=== PATIENT | female | born 1985 | race Caucasian/White ===

== ENCOUNTER 2016-11-18 07:11 | Inpatient (IN) | payer OTHER ==
[~2016-11-18] VITALS: Ht 162.6 cm; Wt 77.0 kg
[2016-11-18] VITALS (45 sets, daily range): BP systolic 105–140; BP diastolic 53–105; PULSE 74–117; RESP 17–30; TEMP 97.6–98.7; O2SAT 98–100
--- NOTE | 2016-11-18 07:55 | PD ---
HPI Chief Complaint Vaginal discharge , Uterine contractions, Date Seen: Nov 18, 2016 Time Seen: 07:40 Travel History International Travel<30 Days: No Contact w/Intl Traveler<30Days: No Known Affected Area: No History of Present Illness HPI Pt is a 31 yo at 40 weeks and 4 days EDC 11-08-[address] Foy, previously uncomplicated. Pt reports 'loss of mucoid plug' at 9pm last night. Discharge appeared greenish this morning. Patient reports contractions during the night No vaginal bleeding. Weeks Gestation: 40 Para: 0 : 1 History Past Medical History Medical History: Denies Significant Hx Past Surgical History Narrative Surgical Laparoscopic cholecystectomy Family History Family History: Negative Social History Alcohol Use: No Tobacco Use: No Substance Abuse: No Allergies-Medications (Allergen,Severity, Reaction): Coded Allergies: No Known Allergies (Unverified , 11/18/16) Review of Systems Except as stated in HPI: all other systems reviewed are Neg Physical Exam Narrative GENERAL: Well-nourished, well-developed patient. SKIN: Warm and dry. HEAD: Normocephalic and atraumatic. EYES: No scleral icterus. No injection or drainage. ENT: No nasal drainage noted. Mucous membranes pink. Airway patent. NECK: Supple, trachea midline. No JVD. CARDIOVASCULAR: Regular rate and rhythm without murmurs, gallops, or rubs. RESPIRATORY: Breath sounds equal bilaterally. No accessory muscle use. BREASTS: Bilateral exam showed no masses , no retractions, no nipple discharge. ABDOMEN/GI: Abdomen soft, non-tender, bowel sounds present, no rebound, no guarding Gravid to [40] weeks size Fundal Height: [-] GENITOURINARY: External Genitalia: intact and normal in appearance BUS glands: [wnl] Cervix: [closed] Dilatation: [closed] Effacement: [50%] Station: [-3] Presentation: [vertex] Membranes: [intact ]Amniosure negative Uterine Contractions: [-] FHT's: Category: [1] Baseline: [-] Reactive: [-] Variability: [-] Decels: [-] EXTREMITIES: No cyanosis or edema. BACK: Nontender without obvious deformity. No CVA tenderness. NEUROLOGICAL: Awake and alert. Motor and sensory grossly within normal limits. Five out of 5 muscle strength in all muscle groups. Normal speech. Data Data Vital Signs Reviewed: Yes Group B Strep: Negative MDM Medical Record Reviewed: Yes Interpretation(s) Uterine contractions, cervix closed. Pt subsequently had decell to 90s that lasted 3 minutes with spontaneous recovery. Plan to admit. D/w Dr Foy Plan Admit for labor and delivery GBS negative Diagnosis Diagnosis: Primary Impression: Indication for care in labor and delivery, antepartum Additional Impression: 40 weeks gestation of Papi Bush MD Nov 18, 2016 07:55
[2016-11-18] MEDS ORDERED: LIDOCAINE HCL 1% 50 ML VIAL INFIL PRN (08:15)
[2016-11-18] MEDS ORDERED: SODIUM CHLOR 0.9% 1000 ML INJ 1,000 ML IV PRN (08:23)
[2016-11-18 08:40] LABS: AUTOMATED NEUTROPHIL # 11.7 TH/MM3 (1.8-7.7); BASOPHIL % 0.1 % (0.0-2.0); EOSINOPHIL # 0.1 TH/MM3 (0-0.4); EOSINOPHIL % 0.5 % (0.0-4.0); HEMATOCRIT 33.1 % (35.0-46.0); HEMO FLAGS DIFF FINAL; LYMPH % 12.8 % (9.0-44.0); LYMPHOCYTE # 1.9 TH/MM3 (1.0-4.8); MEAN CELL VOLUME 88.2 FL (80.0-100.0); MEAN CORPUSCULAR HGB CONC 34.1 % (32.0-36.0); MONO % 8.6 % (0.0-8.0); PLATELET COUNT 233 TH/MM3 (150-450); RED BLOOD COUNT 3.75 MIL/MM3 (4.00-5.30); RED CELL DISTRIBUTION WIDTH 13.7 % (11.6-17.2); WHITE BLOOD COUNT 15.1 TH/MM3 (4.0-11.0)
[2016-11-18] MEDS ORDERED: LIDOCAINE HCL 1% 50 ML VIAL I-DERMAL PRN (09:00)
[2016-11-18] MEDS ORDERED: CITRIC ACID-SODIUM CITRATE LIQ 30 ML UDC PO SCH ×2 (09:00→19:00)
[2016-11-18] MEDS ORDERED: MINERAL OIL 10 ML VIAL TOPICAL PRN (09:00)
[2016-11-18] MEDS ORDERED: SODIUM CHLORID 0.9% 500 ML INJ 500 ML IV PRN (09:00)
[2016-11-18] MEDS ORDERED: LACTATED RINGER'S 1000 ML INJ 1,000 ML IV PRN (09:00)
[2016-11-18] MEDS: LACTATED RINGER'S 1000 ML INJ 1,000 ML IV SCH ×2 (09:00→11:47)
[2016-11-18] MEDS ORDERED: OXYTOCIN 30 UNITS-500ML PREMIX 500 ML IV ONE ×2 (09:00→18:45)
[2016-11-18 09:03] LABS: BACTERIA, URINE MANY /hpf; BLOOD, URINE SMALL (NEG); COMMENT (UR) CULTURE INDICATED; CULTURE IF INDICATED CULTURE INDICATED; GLUCOSE,URINE NEG (NEG); KETONE, URINE NEG (NEG); MUCUS URINE FEW /lpf (OCC); NITRITE,URINE NEG (NEG); SQUAMOUS EPITHELIAL CELL URINE 20 /hpf (0-5); URINE COLOR YELLOW (YELLW/STRAW)
[2016-11-18] MEDS ORDERED: CLINDAMYCIN PHOS 600 MG/4 ML VIAL IM ONE (09:30)
[2016-11-18] MEDS ORDERED: OXYTOCIN 30 UNITS-500ML PREMIX 500 ML IV SCH (09:30)
--- NOTE | 2016-11-18 09:46 | PD.LABORPN ---
Subjective Subjective Notes copious green discharge which she thought was her plug. Having irregular UCs. Did have a prolonged contraction with some affect on strip and since post term, admitted by Dr. Bush. GFM no clear fluid leaking. no bleeding. no nausea, vomiting, blurred vision, RUQT DESAI PNC with HOGA GBS negative hep C + History of substance use disorder but has been in successful recovery with negative UDS during gestation. Does have significant anxiety disorder and does use intermittent xanax. today's urine does show trich Objective Objective strip category one 1 cm, firm, posterior 80% engaged EFW 7 1/2 pounds pelvis in questionable but baby low. Weeks Gestation: 40 Gest Age Assessed Date: Nov 18, 2016 Gest Age Assessed Time: 09:44 Pt started active labor?: No Medical induction of labor?: Yes Medical induction start date: Nov 18, 2016 Medical induction start time: 09:44 Artificial rupture of membrane: No Assessment/Plan Assessment and Plan will treat trich with clindomycin IV will keep intact low dose pit manage with anticipate of have discussed that antibiotic needed (tho not that trich is an STD, since family in room) have discussed labor starting with unfavorable cervix and this will need patience. reviewed epidural, section, etc. Alanna Mittal MD Nov 18, 2016 09:46
[2016-11-18] MEDS ORDERED: CLINDAMYCIN INJ 600 MG in SODIUM CHLORIDE 0.9% INJ 100 ML IV ONE ×2 (10:30→12:15)
[2016-11-18] MEDS ORDERED: TERBUTALINE INJ 1 MG/ML AMP ONE (12:32)
[2016-11-18] MEDS ORDERED: LACTATED RINGER'S 1000 ML INJ 1,000 ML IV SCH ×2 (17:00→23:33)
[2016-11-18] MEDS ORDERED: LACTATED RINGER'S 1000 ML INJ 1,000 ML IV ONE (17:16)
--- NOTE | 2016-11-18 17:16 | PD.LABORPN ---
Subjective Subjective Standing in room and trying to bring baby down. only mild irregular contractions. with minimal pitocin had 9 minute decel that required arom and FSE at 1 cm/90/ posterior Objective Vital Signs Vital Signs Date Time Temp Pulse Resp B/P (MAP) Pulse Ox O2 Delivery O2 Flow Rate FiO2 11/18/16 16:55 18 11/18/16 16:54 98.4 11/18/16 16:53 92 135/85 (102) 11/18/16 16:00 18 11/18/16 15:00 18 11/18/16 14:00 18 11/18/16 13:00 91 11/18/16 13:00 20 11/18/16 12:55 100 11/18/16 12:50 107 11/18/16 12:45 104 11/18/16 12:40 106 11/18/16 12:30 20 11/18/16 12:30 117 140/105 (117) 11/18/16 12:30 104 11/18/16 12:25 78 11/18/16 12:20 76 11/18/16 12:15 86 11/18/16 12:10 84 11/18/16 12:05 77 11/18/16 12:01 84 117/73 (88) 11/18/16 12:00 18 11/18/16 12:00 78 11/18/16 11:55 76 11/18/16 11:50 84 11/18/16 11:46 76 122/69 (86) 11/18/16 11:45 77 11/18/16 11:40 96 11/18/16 11:35 93 11/18/16 11:30 91 11/18/16 11:25 76 11/18/16 11:20 78 11/18/16 11:15 86 11/18/16 11:10 78 11/18/16 11:05 80 11/18/16 11:00 81 11/18/16 10:56 17 11/18/16 10:55 86 11/18/16 10:50 83 11/18/16 10:46 86 137/75 (95) 11/18/16 10:45 82 11/18/16 10:45 98.2 11/18/16 09:45 18 Objective 1cm/80-90% very posterior FSE way up and cannot feel its attachment no more descent. strip is OK at this point Weeks Gestation: 40 Gest Age Assessed Date: Nov 18, 2016 Gest Age Assessed Time: 09:44 Pt started active labor?: No Medical induction of labor?: Yes Medical induction start date: Nov 18, 2016 Medical induction start time: 09:44 Artificial rupture of membrane: Yes Artificial ROM date: Nov 18, 2016 Artifical ROM time: 12:30 Assessment/Plan Assessment and Plan unable to obtain adequate UCs several tetanic UCs with 9 min decel requiring terb last UC no change since exam this am Failure of descent inadequate labor but cannot augment will proceed with section risks, benefits and expectations reviewed with family. Alanna Mittal MD Nov 18, 2016 17:16
[2016-11-18] MEDS ORDERED: OXYTOCIN 10 UNIT/ML AMP ONE (17:20)
[2016-11-18] MEDS ORDERED: ceFAZolin INJ 1,000 MG VIAL ONE (17:20)
[2016-11-18] MEDS ORDERED: MORPHINE SULFATE PF 5 MG/10 ML VIAL ONE (18:33)
--- NOTE | 2016-11-18 18:33 | PD.OB.DELI ---
Procedure Note Section Procedure Pre Op Diagnosis: (1) Failure of descent in labor, delivered, current hospitalization (2) 40 weeks gestation of Post Op Diagnosis: (1) Rudimentary uterine horn Performed by Alanna Mittal Procedure: Primary Low Transverse Sec Indication for delivery: Nonreassuring heart tracing, Other (failure of descent due to right rudimentary horn) Previous condition: None Informed consent obtained: For anesthesia, For procedure Confirmed correct: Patient, Procedure, Site, Time-out taken Anesthesia: Spinal Medication prior to procedure: As documented in eMAR Monitoring during procedure: Blood pressure monitoring, nuclear monitoring technician, Pulse oximetry Urinary catheter: Inserted using sterile technique, To dependent drainage Sterile preparation: Duraprep, In usual fashion Position: Supine with wedge to right side Operative Features Skin Incision: Pfannenstiel Uterine Incision: Low transverse w/knife / blunt ext Membranes Ruptured: Previously Presentation: Occiput posterior Delivery date: Nov 18, 2016 Delivery time: 18:00 Delivery of infant: Assisted : Female One Minute : 9 Five Minute : 9 Weight: 6 13 Status of : Viable Placenta delivered: Intact, Sent to pathology Medications: Antibiotics Estimated blood loss: 500 Maternal Condition: Stable Condition: Stable (dictated) Alanna Mittal MD Nov 18, 2016 18:33
[2016-11-18] MEDS ORDERED: SODIUM CHLORIDE 0.9% FLUSH 10 ML FLUSH IV FLUSH PRN (18:45)
[2016-11-18] MEDS ORDERED: ACETAMINOPHEN 1000 MG/100 ML VIAL IV ONE (18:45)
[2016-11-18] MEDS ORDERED: ZOLPIDEM TARTRATE 5 MG TAB PO PRN (18:45)
[2016-11-18] MEDS ORDERED: ONDANSETRON HCL 4 MG/2 ML VIAL IV PUSH PRN (18:45)
[2016-11-18] MEDS ORDERED: KETOROLAC TROMETHAMINE 60 MG/2 ML (IM) VIAL IM PRN (18:45)
[2016-11-18] MEDS ORDERED: SIMETHICONE 80 MG CHEWABLE TAB PO PRN (18:45)
[2016-11-18] MEDS ORDERED: ACETAMINOPHEN 1000 MG/100 ML 100 ML IV ONE (18:51)
[2016-11-18] MEDS ORDERED: SODIUM CHLORIDE 0.9% FLUSH 10 ML FLUSH IV FLUSH SCH (21:00)
[2016-11-19] VITALS: BP 111/68; PULSE 78; RESP 18; TEMP 98.4
[2016-11-19] MEDS: IBUPROFEN 600 MG TAB PO PRN ×3 (03:27→20:45)
[2016-11-19] MEDS: oxyCODONE/ACETAMINOPHEN 5 MG/325 MG TAB PO PRN ×5 (03:27→20:44)
[2016-11-19 03:38] VITALS: BP 118/75; PULSE 73
[2016-11-19 03:39] VITALS: RESP 20; TEMP 98.5
[2016-11-19] MEDS ORDERED: OXYTOCIN 30 UNITS-500ML PREMIX 500 ML IV PRN (04:45)
[2016-11-19 05:30] LABS: AUTOMATED NEUTROPHIL # 15.6 TH/MM3 (1.8-7.7); BASOPHIL % 0.1 % (0.0-2.0); EOSINOPHIL % 0.1 % (0.0-4.0); HEMATOCRIT 30.2 % (35.0-46.0); HEMO FLAGS DIFF FINAL; LYMPH % 10.2 % (9.0-44.0); LYMPHOCYTE # 1.9 TH/MM3 (1.0-4.8); MEAN CELL VOLUME 89.2 FL (80.0-100.0); MEAN CORPUSCULAR HEMOGLOBIN 29.2 PG (27.0-34.0); MEAN CORPUSCULAR HGB CONC 32.8 % (32.0-36.0); MONO % 6.7 % (0.0-8.0); NEUT % 82.9 % (16.0-70.0); PLATELET COUNT 230 TH/MM3 (150-450); RED BLOOD COUNT 3.39 MIL/MM3 (4.00-5.30); RED CELL DISTRIBUTION WIDTH 13.9 % (11.6-17.2); WHITE BLOOD COUNT 18.8 TH/MM3 (4.0-11.0)
--- NOTE | 2016-11-19 08:34 | HHI.OB ---
Subjective Remarks still needs to void, ambulating Objective Vitals/I&O Vital Signs Date Time Temp Pulse Resp B/P (MAP) Pulse Ox O2 Delivery O2 Flow Rate FiO2 11/19/16 03:39 98.5 20 11/19/16 03:38 73 11/19/16 03:38 118/75 (89) 11/19/16 00:00 78 111/68 (82) 11/19/16 00:00 98.4 18 11/18/16 21:05 97.6 90 18 125/84 (98) 11/18/16 19:35 18 98 11/18/16 19:35 74 113/59 (77) 11/18/16 19:16 113/59 (77) 11/18/16 19:16 79 22 99 11/18/16 19:01 30 98 11/18/16 19:01 79 128/60 (82) 11/18/16 18:50 99 18 125/53 (77) 100 11/18/16 18:35 93 18 105/57 (73) 100 11/18/16 18:32 98.7 11/18/16 16:55 18 11/18/16 16:54 98.4 11/18/16 16:53 92 135/85 (102) 11/18/16 16:00 18 11/18/16 15:00 18 11/18/16 14:00 18 11/18/16 13:00 91 11/18/16 13:00 20 11/18/16 12:55 100 11/18/16 12:50 107 11/18/16 12:45 104 11/18/16 12:40 106 11/18/16 12:30 20 11/18/16 12:30 117 140/105 (117) 11/18/16 12:30 104 11/18/16 12:25 78 11/18/16 12:20 76 11/18/16 12:15 86 11/18/16 12:10 84 11/18/16 12:05 77 11/18/16 12:01 84 117/73 (88) 11/18/16 12:00 18 11/18/16 12:00 78 11/18/16 11:55 76 11/18/16 11:50 84 11/18/16 11:46 76 122/69 (86) 11/18/16 11:45 77 9/4/17 11:40 96 11/18/16 11:35 93 11/18/16 11:30 91 11/18/16 11:25 76 11/18/16 11:20 78 11/18/16 11:15 86 11/18/16 11:10 78 11/18/16 11:05 80 11/18/16 11:00 81 11/18/16 10:56 17 11/18/16 10:55 86 11/18/16 10:50 83 11/18/16 10:46 86 137/75 (95) 11/18/16 10:45 82 11/18/16 10:45 98.2 11/18/16 09:45 18 Result Diagram: 11/19/16 0456 Objective Remarks GENERAL: Well-nourished, well-developed patient. CARDIOVASCULAR: Regular rate and rhythm without murmurs, gallops, or rubs. RESPIRATORY: Breath sounds equal bilaterally. No accessory muscle use. ABDOMEN/GI: Abdomen soft, non-tender, bowel sounds present. Incision: Clean, dry and intact. Fundus: Firm, non-tender at umbilicus. GENITOURINARY: Light to moderate bleeding. EXTREMITIES: No cyanosis or edema, non-tender, without signs of DVT. Medications and IVs Current Medications Medications (Trade) Dose Ordered Sig/Sofia Route Start Time Stop Time Status Last Admin Lactated Ringer's 1,000 ml @ 3,000 mls/hr Q20M PRN IV 11/18/16 09:00 Sodium Chloride 1,000 ml @ 100 mls/hr Q10H PRN IV 11/18/16 08:23 (Xylocaine 1% Inj (50 ml)) 0.1 ml UNSCH X1 PRN I-DERMAL 11/18/16 09:00 11/21/16 08:59 (fentaNYL INJ) 50 mcg Q1H PRN IV PUSH 11/18/16 09:00 (fentaNYL INJ) 100 mcg Q1H PRN IV PUSH 11/18/16 09:00 (Xylocaine 1% Inj (50 ml)) 10 ml UNSCH X1 PRN INFIL 11/18/16 08:15 11/20/16 08:14 (Muri-Lube Oil) 10 ml UNSCH PRN TOPICAL 11/18/16 09:00 Oxytocin 500 ml @ 0 mls/hr TITRATE IV 11/18/16 09:30 11/18/16 11:49 (Bicitra Liq) 30 ml SKILL TRAINING PROGRAM COORDINATOR PO 11/18/16 19:00 11/22/16 18:59 Cefazolin Sodium 1000 mg/Sodium Chloride 100 ml @ 200 mls/hr SKILL TRAINING PROGRAM COORDINATOR IV 11/18/16 18:30 11/22/16 18:29 Lactated Ringer's 1,000 ml @ 100 mls/hr Q10H IV 11/18/16 23:33 11/19/16 19:32 11/18/16 01:00 Oxytocin 500 ml @ 100 mls/hr UNSCH X1 PRN IV 11/19/16 04:45 11/20/16 04:44 (NS Flush) 2 ml BID IV FLUSH 11/18/16 21:00 (NS Flush) 2 ml UNSCH PRN IV FLUSH 11/18/16 18:45 (Mylicon Chew) 80 mg QID PRN PO 11/18/16 18:45 (Motrin) 600 mg Q6H PRN PO 11/18/16 18:45 11/19/16 03:27 (Toradol Inj) 60 mg UNSCH X1 PRN IM 11/18/16 18:45 11/19/16 18:44 (Percocet 5-325 Mg) 2 tab Q4H PRN PO 11/18/16 18:45 11/19/16 06:04 (Caroline-Colace) 2 tab Q12H PRN PO 11/18/16 18:45 (Ambien) 5 mg HS PRN PO 11/18/16 18:45 (M-M-R Ii Inj) 0.5 ml ONCE ONCE SQ 11/19/16 16:00 11/19/16 16:01 (Boostrix Inj) 0.5 ml ONCE ONCE IM 11/19/16 16:00 11/19/16 16:01 (Zofran Inj) 4 mg Q6H PRN IV PUSH 11/18/16 18:45 Assessment/Plan Assessment and Plan pod 1- doing ok, cont ambulating, needs to void cont routine care Eula Herr MD Nov 19, 2016 08:34
[2016-11-19 08:35] VITALS: BP 120/78; PULSE 89; RESP 20; TEMP 98.5
--- NOTE | 2016-11-19 10:23 | MP ---
cc: ANEUDYALANNA DATE OF SURGERY 11/18/2016 DATE OF 1985 PREOPERATIVE DIAGNOSIS 40-1/2-week intrauterine who came in with a decel and mild contractions, non-reassuring strip, intolerance of contractions and lack of descent. POSTOPERATIVE DIAGNOSIS Right rudimentary horn with baby entirely in the left horn in a direct OP position. PROCEDURE Primary low transverse section ANESTHESIA Spinal with Duramorph SURGEON Alanna Mittal MD INTERIOR WIRER Staff FINDINGS A living female weighing 6 pounds 13 ounces was delivered from the left horn in a right occiput posterior position with clear fluid and no nuchal cord. The placenta was fundal and removed manually with a three-vessel cord and then the uterus was explored for membranes at the situation of the right rudimentary horn and the left normal sized were noted. She contracted nicely and had no hemorrhage. ESTIMATED BLOOD LOSS Average COUNTS Sponge, instrument, and needle counts were correct. FINDINGS The baby's 's were 9 at one and 9 at five. There was a delayed cord clamping. The sponge, instrument and needle counts were correct. PROCEDURE The patient was appraised of the indication for her section which at that time was failure of descent, intolerance of any contractions with prolonged decels after contraction with Pitocin. She was taken to the back. She was given 2 grams Ancef. She was prepped and draped in the usual sterile fashion after the placement of a spinal with Duramorph. Weight was off the vena cava. She had a Lema catheter in place. Sequential stockings in place and pumping and then a time-out was performed with all in attending. After assuring adequate analgesia, a Pfannenstiel incision was made with a knife and carried down through the rectus fascia. The rectus fascia was incised with a knife and taken off the rectus muscle. The rectus muscle was in the midline. The parietal peritoneum was entered sharply and a bladder flap was created off the lower uterine segment. An incision was made into the intrauterine cavity which turned out to be just the left uterine horn and the infant was easily delivered with the findings as noted above. The cord was clamped after 4-5 seconds, cut x2 and she was handed to the neonatology team in attending. The placenta was manually removed and careful evacuation of all membranes and then the incision was closed with chromic in a running interlocking fashion with a second horizontal imbricating stitch. The uterus was evaluated and confirmed to have this right rudimentary horn and was replaced in the pelvic cavity. Pelvic irrigation was performed. The incision was noted to be hemostatic. After irrigation, the rectus muscles were closed with Vicryl. The fascia was closed with one Vicryl in a non interlocking fashion. The subcutaneous layer was closed with 3-0 plain and the skin was closed with 4-0 Vicryl on a Robi needle. Estimated blood loss was average. Sponge, instrument, needle count correct. She tolerated the procedure well. She was in the recovery room in stable condition. She is recovering from opioid use and we will avoid opioids if possible. She is hepatitis C positive and we will get a genotype and vial removed before she leaves the hospital. MD ADI Ochoa/CHELE /6:35 PM /10:07 AM
[2016-11-19] MEDS ORDERED: DIPHTH/TETANUS/ACEL PERTUSSIS (BOOSTER) 0.5 ML VIAL/PFS IM ONE (16:00)
[2016-11-19] MEDS ORDERED: MEASLES, MUMPS, RUBELLA VACCINE 0.5 ML VIAL SQ ONE (16:00)
[2016-11-19 20:40] VITALS: BP 111/78; PULSE 93; RESP 18; TEMP 98.8; O2SAT 97
[2016-11-19] MEDS: DOCUSATE SODIUM 50 MG/SENNA 8.6 MG TAB PO PRN (20:45)
[2016-11-20] MEDS: oxyCODONE/ACETAMINOPHEN 5 MG/325 MG TAB PO PRN ×3 (01:05→08:56)
[2016-11-20] MEDS: IBUPROFEN 600 MG TAB PO PRN (04:47)
[2016-11-20] MEDS ORDERED: IBUP-232 PO (07:49)
[2016-11-20] MEDS ORDERED: OXYC1TAB63 PO ×2 (07:49→08:13)
[2016-11-20] MEDS ORDERED: SENN1TAB PO (07:49)
--- NOTE | 2016-11-20 08:13 | HHI.OB ---
Subjective Post Operative Day: 2 Remarks s/p primary LTCD with Dr. Mittal for arrest of descent Objective Vitals/I&O Vital Signs Date Time Temp Pulse Resp B/P (MAP) Pulse Ox O2 Delivery O2 Flow Rate FiO2 11/19/16 20:40 98.8 93 18 111/78 (89) 97 11/19/16 08:35 98.5 89 20 120/78 (92) Result Diagram: 11/19/16 0456 Objective Remarks GENERAL: Well-nourished, well-developed patient. CARDIOVASCULAR: Regular rate and rhythm without murmurs, gallops, or rubs. RESPIRATORY: Breath sounds equal bilaterally. No accessory muscle use. ABDOMEN/GI: Abdomen soft, non-tender, bowel sounds present. Incision: Clean, dry and intact. Fundus: Firm, non-tender at umbilicus. GENITOURINARY: Light to moderate bleeding. EXTREMITIES: No cyanosis or edema, non-tender, without signs of DVT. Medications and IVs Current Medications Medications (Trade) Dose Ordered Sig/Sofia Route Start Time Stop Time Status Last Admin Lactated Ringer's 1,000 ml @ 3,000 mls/hr Q20M PRN IV 11/18/16 09:00 Sodium Chloride 1,000 ml @ 100 mls/hr Q10H PRN IV 11/18/16 08:23 (Xylocaine 1% Inj (50 ml)) 0.1 ml UNSCH X1 PRN I-DERMAL 11/18/16 09:00 11/21/16 08:59 (fentaNYL INJ) 50 mcg Q1H PRN IV PUSH 11/18/16 09:00 (fentaNYL INJ) 100 mcg Q1H PRN IV PUSH 11/18/16 09:00 (Xylocaine 1% Inj (50 ml)) 10 ml UNSCH X1 PRN INFIL 11/18/16 08:15 11/20/16 08:14 (Muri-Lube Oil) 10 ml UNSCH PRN TOPICAL 11/18/16 09:00 Oxytocin 500 ml @ 0 mls/hr TITRATE IV 11/18/16 09:30 11/18/16 11:49 (Bicitra Liq) 30 ml RESIDENTIAL TEAM LEADER PO 11/18/16 19:00 11/22/16 18:59 Cefazolin Sodium 1000 mg/Sodium Chloride 100 ml @ 200 mls/hr RESIDENTIAL TEAM LEADER IV 11/18/16 18:30 11/22/16 18:29 (NS Flush) 2 ml BID IV FLUSH 11/18/16 21:00 (NS Flush) 2 ml UNSCH PRN IV FLUSH 11/18/16 18:45 (Mylicon Chew) 80 mg QID PRN PO 11/18/16 18:45 11/19/16 15:35 (Motrin) 600 mg Q6H PRN PO 11/18/16 18:45 11/20/16 04:47 (Percocet 5-325 Mg) 2 tab Q4H PRN PO 11/18/16 18:45 11/20/16 04:48 (Caroline-Colace) 2 tab Q12H PRN PO 11/18/16 18:45 11/19/16 20:45 (Ambien) 5 mg HS PRN PO 11/18/16 18:45 (Zofran Inj) 4 mg Q6H PRN IV PUSH 11/18/16 18:45 Assessment/Plan Assessment and Plan pod 2 routine supportive care pt desires d/c today, will need weekly f/u in office eufemia Mittal due to substance abuse history/issues d/c to home Discharge Planning today Laurie Souza MD Nov 20, 2016 08:12
--- NOTE | 2016-11-20 08:16 | HHI.DCPOC ---
Discharge Care Plan Diagnosis: (1) S/P primary low transverse Your Health Problems Are: delivery Report Symptoms to Your Doctor -Temperature above 100.5 degrees -Redness, of incision or excessive or foul smelling drainage -Unusual pain or calf pain -Increased vaginal bleeding -Painful or difficulty urinating -Feelings of extreme sadness or anxiety after 2 weeks Goals to Promote Your Health * To prevent worsening of your condition and complications * To maintain your health at the optimal level Directions to Meet Your Goals Take your medications as prescribed Follow your dietary instruction Follow activity as directed Ensure plenty of rest for recovery Drink fluids for hydration Keep your appointments as scheduled Take your immunizations and boosters as scheduled If your symptoms worsen call your PCP, if no PCP go to Urgent Care Center or Emergency Room Smoking is Dangerous to Your Health. Avoid second hand smoke Call the 24-hour crisis hotline for domestic abuse at Laurie Souza MD Nov 20, 2016 08:16
[2016-11-20 08:50] VITALS: BP 140/88; PULSE 102; RESP 17; TEMP 97.8
[2016-11-20] MEDS: DOCUSATE SODIUM 50 MG/SENNA 8.6 MG TAB PO PRN (08:56)
[2016-11-22 09:53] LABS: BATH SALTS (MDPV) UR NEG (NEG); ECSTASY (MDMA) UR NEG (NEG); HEROIN (6-ACETYLMORPHINE) UR NEG (NEG); K2 SPICE UR NEG (NEG); OBMETHADONE UR NEG (NEG); PHENCYCLIDINE URINE NEG (NEG)
[2016-11-22 09:54] LABS: GABAPENTIN UR NEG (NEG); HYDROMORPHONE U NEG (NEG)
== END 2016-11-20 12:05 | disposition home or self-care (01) | DRG 765 ==
LOC: HOBED 07:11 → H2EA 08:22 → H1EA 20:10
PROVIDERS: ADMIT Obstetrics & Gynecology; ATTEND Obstetrics & Gynecology
PROC: 10D00Z1 Extraction of Products of Conception, Low, Open Approach (ICD-10-PCS; principal; 2016-11-18)
PROC: 10907ZC Drainage of Amniotic Fluid, Therapeutic from Products of Conception, Via Natural or Artificial Opening (ICD-10-PCS; 2016-11-18)
DX: O76 Abnormality in fetal heart rate and rhythm complicating labor and delivery (principal); O98.42 Viral hepatitis complicating childbirth; O32.4XX0 Maternal care for high head at term, not applicable or unspecified; Q51.818 Other congenital malformations of uterus; B19.20 Unspecified viral hepatitis C without hepatic coma; O65.5 Obstructed labor due to abnormality of maternal pelvic organs; O34.593 Maternal care for other abnormalities of gravid uterus, third trimester; O99.344 Other mental disorders complicating childbirth; F41.9 Anxiety disorder, unspecified; Z37.0 Single live birth; Z3A.40 40 weeks gestation of pregnancy
CPT/HCPCS: 59025; 80307; 81001; 84112; 85025; 86900; 86901; 87086; 88307; 90715; G0481; J0131; J0690; J2274; J2590; J3105; J7120